=== PATIENT | female | born 1975 | race African-American/Black ===

== ENCOUNTER → 2018-05-17 12:44 | Outpatient (CLI) | payer OTHER, SELFPAY ==
--- NOTE | 2018-05-17 12:46 | DI.US.S_ITS ---
PROCEDURE: US PELVIC COMPLETE INDICATIONS: Abdominal bloating TECHNIQUE: Real-time scanning was performed of the pelvic organs, with image documentation. Additional endovaginal scanning was necessary due to incomplete visualization of the adnexal and endometrial structures by transabdominal scanning. COMPARISON: None. FINDINGS: Transabdominal scanning: Limited scanning through the kidneys shows no hydronephrosis. No pathologic free abdominal or pelvic fluid. Endovaginal scanning: Uterus: Uterus is normal in size at 8.6 x 3.8 x 3.0 cm. The endometrium measures 6.0 mm in combined thickness. Ovaries: Left ovary is not visualized. Normal right ovary measuring 2.5 x 1.8 x 2.7 cm with an associated 1.6 cm follicular cyst. IMPRESSION: No source for abdominal bloating identified. Dictated by: Hunter MEJIA Interpreted: Nadiya Merchant MD on 05/17/2018 at 14:41 Approved by: Nadiya Merchant M.D. on 05/17/2018 at 16:08
== END ==
PROVIDERS: PCP Student in an Organized Health Care Education/Training Program; Visit Provider Registered Nurse
DX: R14.0 Abdominal distension (gaseous) (principal); N83.01 Follicular cyst of right ovary
CPT/HCPCS: 76830; 76856

== ENCOUNTER → 2018-06-15 10:36 | Outpatient (CLI) | payer OTHER, SELFPAY ==
--- NOTE | 2018-06-15 10:47 | DI.CT.S_ITS ---
PROCEDURE: CT ABDOMEN PELVIS WO CON INDICATIONS: Abdominal pain, weight gain TECHNIQUE: Noncontrast 5 mm thick sections acquired from the diaphragms to the symphysis. 5 mm coronal and sagittal reformats were then performed. For radiation dose reduction, the following was used: automated exposure control, adjustment of mA and/or kV according to patient size. COMPARISON: None. FINDINGS: Image quality: Excellent. ABDOMEN: Lung bases: Lung bases are clear. Heart size is normal. Solid organs: Liver is normal in size. Gallbladder is contracted, but within normal limits.. Pancreas is normal in contours. Spleen is normal in size. No adrenal nodules. Kidneys are normal in size, without hydronephrosis or nephrolithiasis. Peritoneum and bowel: Unenhanced bowel loops demonstrate normal wall thickness and caliber. No free fluid or air. The appendix is not visualized. No free fluid or inflammatory changes are noted adjacent to the cecum. Nodes and vessels: No retroperitoneal or mesenteric adenopathy by size criteria. Aorta and inferior vena cava are normal in caliber. Miscellaneous: Small fat-containing umbilical hernia. PELVIS: Genitourinary: Bladder is slightly thickened and irregular. Miscellaneous: No inguinal hernias or adenopathy. Stranding noted in the anterior lower pelvic wall possibly related to postsurgical scarring related to prior section/surgery; please correlate with clinical history. Bones: No suspicious bony lesions. No vertebral body compression fractures. IMPRESSION: 1. No free fluid or free air. 2. No dilated loops of bowel. 3. No abnormal mass. No lymphadenopathy based on size criteria. 4. Mild, diffuse irregular thickening of the urinary bladder wall. Finding could be secondary to underdistention versus inflammatory/infectious or neoplastic process. Please correlate with urinalysis data. 5. The appendix is not definitely visualized. No secondary signs of appendicitis such as inflammatory change or free fluid are identified adjacent to the cecum in the current study. Dictated by: Marni Tovar MD, PhD on 06/15/2018 at 13:19 Approved by: Marni Tovar MD, PhD on 06/15/2018 at 13:30
== END ==
PROVIDERS: PCP Student in an Organized Health Care Education/Training Program; Visit Provider Student in an Organized Health Care Education/Training Program
DX: R10.9 Unspecified abdominal pain (principal); R63.5 Abnormal weight gain
CPT/HCPCS: 74176

== ENCOUNTER → 2018-06-22 10:52 | Outpatient (CLI) | payer OTHER, SELFPAY ==
[2018-06-22 10:57] LABS: Bacteria Urine None Seen; RBC Urine None Seen (0-5/HPF); WBC Urine None Seen (0-5/HPF)
[2018-06-22 12:16] LABS: Appearance Urine UA CLEAR; Bilirubin Urine UA NEGATIVE (NEGATIVE); Color Urine UA YELLOW; Glucose Urine UA NEGATIVE (Negative); Ketones Urine UA NEGATIVE (NEGATIVE); Leukocyte Esterase Urine UA NEGATIVE (NEGATIVE); Nitrite Urine UA NEGATIVE (Negative); Occult Blood Urine UA NEGATIVE (Negative); Protein Urine UA NEGATIVE (Negative); Urobilinogen Urine UA 0.2 E.U./dL (0.2); pH Urine UA 6.5 (4.5-8.0)
[2018-06-22 12:19] LABS: Culture Indicated Urine Cult Not Indicated; Urine Comments Microscopic Normal
== END ==
PROVIDERS: PCP Student in an Organized Health Care Education/Training Program; Visit Provider Student in an Organized Health Care Education/Training Program
DX: R10.2 Pelvic and perineal pain (principal); R93.89 Abnormal findings on diagnostic imaging of other specified body structures
CPT/HCPCS: 81001

== ENCOUNTER → 2020-06-19 16:05 | Outpatient (CLI) | payer OTHER, SELFPAY ==
--- NOTE | 2020-06-19 16:06 | DI.MG.S_ITS ---
BILATERAL DIGITAL SCREENING MAMMOGRAM 3D/2D WITH CAD: 06/19/2020 CLINICAL: Routine screening. Baseline exam. No prior exams were available for comparison. The tissue of both breasts is heterogeneously dense. This may lower the sensitivity of mammography. Current study was also evaluated with a Computer Aided Detection (CAD) system. There is a 1 cm asymmetry with an indistinct margin in the right breast anterior depth central to the nipple seen on the craniocaudal view only. No other significant masses, calcifications, or other findings are seen in either breast. IMPRESSION: INCOMPLETE: NEEDS ADDITIONAL IMAGING EVALUATION The 1 cm asymmetry in the right breast is indeterminate. Additional views with possible ultrasound are recommended. This exam was interpreted at Station ID: [id number]. NOTE: For mammograms, a report in lay terms will be sent to the patient. Approximately 15% of breast malignancies will not be visualized mammographically. In the management of a palpable breast mass, a negative mammogram must not discourage biopsy of a clinically suspicious lesion. Electronically Signed By: Gatito Steinberg acr/:06/19/2020 17:24:53 letter sent: Additional Imaging Needed ACR BI-RADS Category 0: Incomplete [id number]
== END ==
PROVIDERS: PCP Student in an Organized Health Care Education/Training Program; Referring Provider Student in an Organized Health Care Education/Training Program; Visit Provider Student in an Organized Health Care Education/Training Program
DX: Z12.31 Encounter for screening mammogram for malignant neoplasm of breast (principal)
CPT/HCPCS: 77063; 77067

== ENCOUNTER → 2020-07-01 12:09 | Outpatient (CLI) | payer OTHER, SELFPAY ==
--- NOTE | 2020-07-01 12:10 | DI.US.S_ITS ---
PROCEDURE: US PELVIC COMPLETE INDICATIONS: breast cancer screening TECHNIQUE: Real-time scanning was performed of the pelvic organs, with image documentation. Additional endovaginal scanning was necessary due to incomplete visualization of the adnexal and endometrial structures by transabdominal scanning. COMPARISON: [facility], , US PELVIC COMPLETE, 05/17/2018, 13:11. FINDINGS: Uterus: Uterus is normal in size at 2.6 x 5.0 x 9.2 cm. The endometrium measures 4.2 mm in combined thickness. Ovaries: The right ovary measures 2.4 x 1.6 x 1.5 cm and the left ovary measures 2.6 x 1.5 x 1.3 cm Other: No pathologic free abdominal or pelvic fluid. IMPRESSION: No evidence of ovarian torsion. No simple or complex cyst is found. Normal appearing uterus. Dictated by: Felix Betts M.D. on 07/01/2020 at 14:01 Approved by: Felix Betts M.D. on 07/01/2020 at 14:03
== END ==
PROVIDERS: PCP Student in an Organized Health Care Education/Training Program; Referring Provider Registered Nurse; Visit Provider Registered Nurse
DX: N92.3 Ovulation bleeding (principal)
CPT/HCPCS: 76830; 76856

== ENCOUNTER → 2020-07-03 14:57 | Outpatient (CLI) | payer OTHER, SELFPAY ==
--- NOTE | 2020-07-03 14:58 | DI.MG.S_ITS ---
UNILATERAL RIGHT DIGITAL DIAGNOSTIC MAMMOGRAM 3D/2D WITH ADDITIONAL VIEWS: 07/03/2020 CLINICAL: Additional evaluation requested from prior study. Comparison is made to exam dated: 06/19/2020 [facility]. The tissue of right breast is heterogeneously dense. This may lower the sensitivity of mammography. With focal spot compression, and additional views, the 1 cm asymmetry with an indistinct margin in the right breast anterior depth central to the nipple seen on the craniocaudal view only on screening mammography resolves. No other significant masses or calcifications are seen in the breast. IMPRESSION: INCOMPLETE: NEEDS ADDITIONAL IMAGING EVALUATION An ultrasound is recommended to confirm resolution of the asymmetry in the right breast. This was performed immediately following this exam. This exam was interpreted at Station ID: [id number]. NOTE: For mammograms, a report in lay terms will be sent to the patient. Approximately 15% of breast malignancies will not be visualized mammographically. In the management of a palpable breast mass, a negative mammogram must not discourage biopsy of a clinically suspicious lesion. Electronically Signed By: Lilo shearer/:07/03/2020 15:33:25 ACR BI-RADS Category 0: Incomplete [id number]
--- NOTE | 2020-07-03 14:58 | DI.US.S_ITS ---
LIMITED ULTRASOUND OF RIGHT BREAST AND AXILLA: 07/03/2020 CLINICAL: Patient returns today to evaluate a focal asymmetry in the right breast. Comparison is made to exams dated: 07/03/2020 mammogram and 06/19/2020 mammogram - [facility]. Ultrasound of the right breast 11-1 o'clock, 5-7 o'clock, and axilla regions was performed. No significant abnormalities were seen sonographically in the right breast. Specifically, no finding to correspond to the patient's resolved screening mammographic abnormality. IMPRESSION: PROBABLY BENIGN There is no sonographic correlate to the patient's screening mammography abnormality and no evidence of malignancy. A follow-up right mammogram in 6 months is recommended to demonstrate stability. Findings and recommendations were conveyed to the patient at time of exam. This exam was interpreted at Station ID: [id number]. Electronically Signed By: Lilo shearer/:07/03/2020 16:23:17 letter sent: Followup Recommended Ultrasound BI-RADS: 3 Probably benign
== END ==
PROVIDERS: PCP Registered Nurse; Referring Provider Student in an Organized Health Care Education/Training Program; Visit Provider Student in an Organized Health Care Education/Training Program
DX: R92.8 Other abnormal and inconclusive findings on diagnostic imaging of breast (principal)
CPT/HCPCS: 76642; 77065; G0279

== ENCOUNTER → 2021-01-28 12:41 | Outpatient (CLI) | payer OTHER, SELFPAY ==
--- NOTE | 2021-01-28 12:42 | DI.MG.S_ITS ---
UNILATERAL RIGHT DIGITAL DIAGNOSTIC MAMMOGRAM 3D/2D: 01/28/2021 CLINICAL: Short term follow up of the right breast. Comparison is made to exams dated: 07/03/2020 ultrasound, 07/03/2020 mammogram, and 06/19/2020 mammogram - [facility]. The tissue of right breast is heterogeneously dense. This may lower the sensitivity of mammography. The previously seen asymmetry in the right breast is no longer visualized with spot compression, similar to the prior diagnostic exam. No significant masses, calcifications, or other findings are seen in the breast. IMPRESSION: NEGATIVE There is no mammographic evidence of malignancy. A 1 year screening mammogram is recommended. This exam was interpreted at Station ID: [id number]. NOTE: For mammograms, a report in lay terms will be sent to the patient. Approximately 15% of breast malignancies will not be visualized mammographically. In the management of a palpable breast mass, a negative mammogram must not discourage biopsy of a clinically suspicious lesion. Electronically Signed By: Rodney gonzalez/suzette:01/28/2021 13:16:47 letter sent: Normal Exam ACR BI-RADS Category 1: Negative [id number]
== END ==
PROVIDERS: PCP Registered Nurse; Referring Provider Registered Nurse; Visit Provider Registered Nurse
DX: R92.8 Other abnormal and inconclusive findings on diagnostic imaging of breast (principal)
CPT/HCPCS: 77065; G0279

== ENCOUNTER 2022-07-06 09:18 | Emergency (ER) | payer OTHER, SELFPAY ==
[2022-07-06 09:34] VITALS: BP 117/74; PULSE 95; RESP 14; TEMP 38.6; O2SAT 98; BMI 24.5
--- NOTE | 2022-07-06 09:40 | DI.RAD.S_ITS ---
PROCEDURE: XR CHEST 2V INDICATIONS: cough x 21 days, now fever TECHNIQUE: 2 views of the chest were acquired. COMPARISON: None. FINDINGS: Surgical changes and devices: None. Lungs and pleura: Lungs are clear. No pleural effusions or pneumothorax. Mediastinum: Mediastinal contours are normal. Borderline cardiomegaly. Bones and chest wall: No suspicious bony abnormalities. Soft tissues appear unremarkable. IMPRESSION: Borderline cardiomegaly. No evidence acute pulmonary process. Dictated by: Ken Mosquera M.D. on 07/06/2022 at 9:52 Approved by: Ken Mosquera M.D. on 07/06/2022 at 9:53
[2022-07-06 09:44] VITALS: TEMP 38.6
[2022-07-06] MEDS: ACETAMINOPHEN 325 MG TABLET 975 MG PO (09:44)
[2022-07-06 10:23] LABS: Influenza A - CEPHEID Flu A NEGATIVE (NEGATIVE); Influenza B - CEPHEID Flu B NEGATIVE (NEGATIVE); Respiratory Syncytial Virus Negative (Negative)
[2022-07-06 10:27] LABS: COVID-19 CEPHEID 4-PLEX PCR Negative (Negative)
[2022-07-06 11:33] VITALS: TEMP 37.4
--- NOTE | 2022-07-06 12:31 | ED_ITS ---
HPI - Fever <Rod Leon PA-C - Last Filed: 07/06/22 12:38> General Chief Complaint: Fever Stated Complaint: cough T-21/fever/chest pain Time Seen by Provider: 07/06/22 11:56 Source: patient Mode of arrival: Ambulatory History of Present Illness HPI Narrative: 47-year-old female presents to the ED with 2 days of fever, cough. Patient states she has been intermittently coughing for the last 3 weeks, however star damon running a fever over the last couple of days. Patient denies rhinorrhea, sore throat, chest pain, shortness of breath, nausea, vomiting, lightheadedness, dizziness, syncope. Patient is tolerating p.o. well. Related Data Previous Rx's Medication Instructions Recorded benzonatate 200 mg capsule 200 mg PO TID PRN cough 10 days 07/06/22 #30 caps Allergies Allergy/AdvReac Type Severity Reaction Status Date / Time amoxicillin [AMOXICILLIN] Allergy Mild rash Verified 07/06/22 09:38 Review of Systems <Rod Leon PA-C - Last Filed: 07/06/22 12:38> Review of Systems ROS Unobtainable: All systems reviewed & are unremarkable except as noted in HPI and below Constitutional Constitutional: Reports chills, Denies fatigue, Reports fever(s), Denies frequent falls, Denies lethargy and Denies weakness Eyes Eyes: Denies change in vision, Denies eye discharge, Denies irritation and Denies loss of vision ENT Ears, Nose, Mouth, and Throat: Denies change in voice, Denies dizziness, Denies neck pain, Denies sore throat and Denies throat swelling Cardiovascular Cardiovascular: Denies chest pain, Denies irregular heart rhythm, Denies lightheadedness, Denies palpitations, Denies dyspnea, Denies dyspnea on exertion and Denies orthopnea Respiratory Respiratory: Reports cough, Denies dyspnea, Denies dyspnea on exertion and Denies wheezing Gastrointestinal Gastrointestinal: Denies abdominal pain, Denies change in bowel habits, Denies diarrhea, Denies nausea and Denies vomiting Genitourinary Genitourinary: Denies hematuria, Denies flank pain, Denies urinary incontinence and Denies urinary urgency Musculoskeletal Musculoskeletal: Denies back pain, Denies muscle weakness, Denies neck pain, Denies numbness and Denies tingling Integumentary/Breasts Skin/Breast: Denies pruritus, Denies erythema, Denies rash and Denies wounds Neurologic Neurologic: Denies behavioral changes, Denies confusion, Denies dizziness, Denies frequent falls, Denies loss of vision, Denies numbness, Denies tingling and Denies weakness Psychiatric Psychiatric: Denies anxiety, Denies behavioral changes, Denies confusion, Denies depression, Denies homicidal ideation and Denies suicidal ideation Endocrine Endocrine: Denies fatigue, Denies flushing and Denies palpitations Hematologic/Lymphatic Hematologic/Lymphatic: Denies easy bruising Allergic/Immunologic Allergic/Immunologic: Denies urticaria, Denies throat swelling and Denies wheezing Patient History <Rod Leon PA-C - Last Filed: 07/06/22 12:38> Medical History Abnormal Pap smear of cervix History of stillbirth History of use of contraceptive intrauterine device (IUD) History of vaginal delivery Surgical History History of cervical cerclage History of unilateral oophorectomy Family History Father Suicide Mother Hypertension Diabetes mellitus Hyperlipidemia CVA (cerebral vascular accident) Social History Smoking Status: Never smoker alcohol intake: current (sometimes) substance use type: does not use Smoking Status: Never smoker alcohol intake frequency: holidays/special occasions only Substance Use Type: does not use Exam <Rod Leon PA-C - Last Filed: 07/06/22 12:38> Narrative Exam Narrative: Const General:?cooperative, healthy appearing and comfortable [facility] Head:?normal to inspection Ears:?hearing grossly normal bilaterally Nose:?external nose normal Face and sinus:?normal facial exam and sinuses nontender Mouth:?oral mucosae normal Throat:?posterior oropharynx normal Eyes General:?appearance normal, both eyes and all related structures Neck Neck:?normal visual inspection and no lymphadenopathy noted Resp Effort & Inspection:?normal respiratory effort Auscultation:?clear to auscultation bilaterally Cardio Rate:?regular rate Rhythm:?regular rhythm Neuro General:?patient alert, patient awake and patient oriented x3 Initial Vital Signs Initial Vital Signs: Vital Signs Temperature 101.5 F H 07/06/22 09:34 Pulse Rate 95 H 07/06/22 09:34 Respiratory Rate 14 07/06/22 09:34 Blood Pressure 117/74 07/06/22 09:34 Pulse Oximetry 98 07/06/22 09:34 Oxygen Delivery Method 07/06/22 09:34 <Rufino Nelson DO - Last Filed: 07/06/22 13:08> Initial Vital Signs Initial Vital Signs: Vital Signs Temperature 101.5 F H 07/06/22 09:34 Pulse Rate 95 H 07/06/22 09:34 Respiratory Rate 14 07/06/22 09:34 Blood Pressure 117/74 07/06/22 09:34 Pulse Oximetry 98 07/06/22 09:34 Oxygen Delivery Method 07/06/22 09:34 Course <Rod Leno PA-C - Last Filed: 07/06/22 12:38> Orders Ordered: ED Orders 07/06/22 09:40 XR chest 2V Stat 07/06/22 09:41 Covid-19 + FLU A/B + RSV - PCR Stat Discontinued Medications Acetaminophen (Acetaminophen 325 Mg Tablet) 975 mg PO NOW ONE Stop: 07/06/22 09:40 Last Admin: 07/06/22 09:44 Dose: 975 mg Documented By: ANA Vital Signs Vital signs: Vital Signs - 8 hr 07/06/22 09:34 07/06/22 09:44 07/06/22 11:33 Temperature 101.5 F H 101.5 F H 99.3 F Pulse Rate 95 H Respiratory Rate 14 Blood Pressure 117/74 Pulse Oximetry 98 Oxygen Delivery Method Room Air 07/06/22 11:33 07/06/22 12:37 Temperature 99.3 F Pulse Rate 70 Respiratory Rate 18 Blood Pressure 122/70 Pulse Oximetry 99 Oxygen Delivery Method Room Air <DO Petey Tomas Last Filed: 07/06/22 13:08> Orders Ordered: ED Orders 07/06/22 09:40 XR chest 2V Stat 07/06/22 09:41 Covid-19 + FLU A/B + RSV - PCR Stat Discontinued Medications Acetaminophen (Acetaminophen 325 Mg Tablet) 975 mg PO NOW ONE Stop: 07/06/22 09:40 Last Admin: 07/06/22 09:44 Dose: 975 mg Documented By: ANA Vital Signs Vital signs: Vital Signs - 8 hr 07/06/22 09:34 07/06/22 09:44 07/06/22 11:33 Temperature 101.5 F H 101.5 F H 99.3 F Pulse Rate 95 H Respiratory Rate 14 Blood Pressure 117/74 Pulse Oximetry 98 Oxygen Delivery Method Room Air 07/06/22 11:33 07/06/22 12:37 Temperature 99.3 F Pulse Rate 70 Respiratory Rate 18 Blood Pressure 122/70 Pulse Oximetry 99 Oxygen Delivery Method Room Air MDM - Fever <Rod Leon PA-C - Last Filed: 07/06/22 12:38> Lab Data Labs: Lab Results 07/06/22 Range/Units 09:41 SARS-CoV-2 (PCR) Negative (Negative) Influenza A (RT-PCR) Flu a negative (NEGATIVE) Influenza B (RT-PCR) Flu b negative (NEGATIVE) RSV (PCR) Negative (Negative) MDM Narrative Medical decision making narrative: 47-year-old female presents to the ED with 2 days of fever, cough. Concern for viral upper respiratory infection versus pneumonia versus other. Obtained respiratory panel which was negative for COVID, influenza, RSV. Obtained x-ray with no acute findings, negative for pneumonia. Patient's symptoms likely due to a viral upper respiratory infection. Patient was febrile to 101.5 F on presentation to the ED, was given Tylenol with successfully brought her te mperature down to 99.3 F. discussed findings with patient, recommend supportive measures with Tylenol, ibuprofen, Tessalon Perles, good hydration. Patient agrees to follow-up with her PCP, agrees to return to the ED if she experiences chest pain, trouble breathing. Medical records reviewed: Yes <Rufino Nelson DO - Last Filed: 07/06/22 13:08> Lab Data Labs: Lab Results 07/06/22 Range/Units 09:41 SARS-CoV-2 (PCR) Negative (Negative) Influenza A (RT-PCR) Flu a negative (NEGATIVE) Influenza B (RT-PCR) Flu b negative (NEGATIVE) RSV (PCR) Negative (Negative) Discharge Plan Departure Patient Disposition: Home Clinical Impression: Acute upper respiratory infection Instructions: DI for Viral Upper Respiratory Infection -- Adult Activity Restrictions/Additional Instructions: You were evaluated in the ED today for a fever and a cough. You were negative for COVID-19, influenza, RSV. Your chest x-ray does not show a pneumonia. Your symptoms are likely due to a viral upper respiratory infection. You may treat the fever and body aches with Tylenol, ibuprofen. Please continue good hydration. You are being prescribed Tessalon Perles for your cough. Please follow-up with your PCP in a week. Return to the ED if you have any chest pain or trouble breathing. Prescriptions: New benzonatate 200 mg capsule 200 mg PO TID PRN (Reason: cough) 10 Days Qty: 30 0RF Referrals: Leodan Guo MD [Primary Care Provider] - Stand Alone Forms: Patient Portal/API <Rufino Nelson, - Last Filed: 07/06/22 13:08> Cosign ED Attending Cosignature Attestation: Dr Nelson Co-Sign Statement: I was available for consultation during this patient's emergency department visit. This chart is signed by myself for administrative purposes only. I did not have direct contact with this patient during this visit. They were seen independently by the APC.
[2022-07-06 12:37] VITALS: BP 122/70; PULSE 70; RESP 18; O2SAT 99
== END 2022-07-06 12:41 | disposition home or self-care (01) ==
PROVIDERS: Emergency Medicine; Emergency Provider Student in an Organized Health Care Education/Training Program; PCP Family Medicine
DX: J06.9 Acute upper respiratory infection, unspecified (principal); R05.9 Cough, unspecified; Z20.822 Contact with and (suspected) exposure to COVID-19
CPT/HCPCS: 0241U; 71046; 99283

== ENCOUNTER 2022-07-11 19:34 | Emergency (ER) | payer OTHER, SELFPAY ==
--- NOTE | 2022-07-11 19:41 | ED.GENADULT ---
HPI - General Adult General Chief complaint: Upper Respiratory Symptoms Stated complaint: weak, cough, chills Time Seen by Provider: 07/11/22 19:37 History of Present Illness HPI narrative: 47-year-old female nonsmoker presents with various upper respiratory symptoms including nasal congestion, runny nose, sore throat, dry hacking cough and body aches. She feels generally fatigued. She does not have any significant shortness of breath and denies nausea, vomiting or diarrhea. She was here earlier in the week and had evaluation including chest x-ray which was clear and quad respiratory panel negative. She was sent home with diagnosis of viral upper respiratory infection, given a prescription for Tessalon Perles and returns because she isn't feeling any better. Admittedly she does not feel worse but is concerned that something else may be going on. She denies any recent travel, injury or history of blood clot. She denies any history of cancer or lower extremity pain Related Data Previous Rx's Medication Instructions Recorded benzonatate 200 mg capsule 200 mg PO TID PRN cough 10 days 07/06/22 #30 caps doxycycline hyclate 100 mg tablet 100 mg PO BID #20 tabs 07/11/22 Allergies Allergy/AdvReac Type Severity Reaction Status Date / Time amoxicillin [AMOXICILLIN] Allergy Mild rash Verified 07/06/22 09:38 Review of Systems Review of Systems Narrative: GENERAL: See HPI HEENT: See HPI RESPIRATORY: See HPI CARDIOVASCULAR: Denies chest pain, palpitations, orthopnea, edema, GASTROINTESTINAL: Denies nausea, vomiting, abdominal pain, diarrhea, constipation, melena. : Denies dysuria, frequency, incontinence, hematuria, urinary retention. MUSCULOSKELETAL: denies weakness, joint pain, or bony pain SKIN: Denies rash, skin lesions, or other NEUROLOGIC: Denies weakness, headache, numbness, change in speech, confusion, seizures, incoordination. PSYCHIATRIC: No concerning psychosocial issues. 12 point review of systems is negative except for those stated above Patient History Medical History Abnormal Pap smear of cervix History of stillbirth History of use of contraceptive intrauterine device (IUD) History of vaginal delivery Surgical History History of cervical cerclage History of unilateral oophorectomy Family History Father Suicide Mother Hypertension Diabetes mellitus Hyperlipidemia CVA (cerebral vascular accident) Social History Smoking Status: Never smoker alcohol intake: current (sometimes) substance use type: does not use Smoking Status: Never smoker alcohol intake frequency: holidays/special occasions only Substance Use Type: does not use Exam Narrative Exam Narrative: GENERAL: 47[] year old patient appears stated age. Well-developed patient, in mild distress. GCS 15 HEAD: Atraumatic. Normocephalic. EYES: Pupils equal round and reactive. Extraocular motions intact. No scleral icterus. No injection or drainage. ENT: Moist mucous membranes. Clear nasal drainage bilaterally Nose without bleeding, purulent drainage. Throat without erythema, tonsillar hypertrophy or exudate. Airway patent. NECK: Trachea midline. Non tender CARDIOVASCULAR: Regular rate and rhythm without murmurs, gallops, or rubs. RESPIRATORY: Lungs clear, no use of accessory muscles, tachypnea or hypoxemia. It is noted that deep breath does occasionally illicit a dry cough. No obvious wheezes, rales or rhonchi GASTROINTESTINAL: Abdomen soft, non-tender, nondistended. EXTREMITIES: No edema or joint tenderness. BACK: Nontender without deformity or crepitance. No flank tenderness. NEURO: AOx3. SKIN: No rash or erythema of visible areas Initial Vital Signs Initial Vital Signs: Vital Signs Temperature 98.6 F 07/11/22 19:43 Pulse Rate 87 07/11/22 19:43 Respiratory Rate 18 07/11/22 19:43 Blood Pressure 179/104 H 07/11/22 19:43 Pulse Oximetry 98 07/11/22 19:43 Oxygen Delivery Method Room Air 07/11/22 19:43 Course Orders Ordered: ED Orders 07/11/22 19:47 Respiratory Panel (Film Array) Stat 07/11/22 19:55 CBC Auto Diff [Complete Blood Count AUTO DIFF] Stat D Dimer Stat NT-proBNP (BNP-Adult 18+) Stat Procalcitonin Stat 07/11/22 20:44 CT angio chest PE protocol Stat Discontinued Medications Doxycycline Hyclate (Doxycycline Hyclate 100 Mg Tablet) 100 mg PO NOW ONE Stop: 07/11/22 21:38 Last Admin: 07/11/22 21:44 Dose: 100 mg Documented By: NR Vital Signs Vital signs: Vital Signs - 8 hr 07/11/22 19:43 07/11/22 21:31 07/11/22 21:31 Temperature 98.6 F Pulse Rate 87 75 Respiratory Rate 18 Blood Pressure 179/104 H 131/81 Pulse Oximetry 98 99 Oxygen Delivery Method Room Air Room Air Medical Decision Making Lab Data 07/11/22 19:55 Labs: Lab Results 07/11/22 07/11/22 07/11/22 Range/Units 19:47 19:55 19:55 WBC 5.6 (4.5-11.0) X10^3/uL RBC 4.29 (4.0-5.2) X10^6/uL Hgb 13.0 (12.0-16.0) g/dL Hct 38.0 (36-46) % MCV 88.5 (80-100) fL MCH 30.3 (26-34) PG MCHC 34.2 (30-36) % RDW 13.1 (11.6-14.8) % Plt Count 207 (150-400) X10^3/uL Neut % (Auto) 53.0 (50-75) % Lymph % (Auto) 33.5 (25-40) % [place] % (Auto) 9.6 (3-14) % Eos % (Auto) 3.5 (2-4) % Baso % (Auto) 0.4 (0-2) % Neut # (Auto) 3000 (0082-5540) /uL Lymph # (Auto) 1900 (9335-4344) /uL [place] # (Auto) 500 (0-900) /uL Eos # (Auto) 200 (0-450) /uL Baso # (Auto) 0 (0-100) /uL D-Dimer 794 H (<500) ng/ml NT-Pro-B Natriuret Pep (<125) pg/mL Procalcitonin (<0.5) ng/mL Chlamy pneumoniae PCR Not detected (Not Detect) Adenovirus (PCR) Not detected (Not Detect) B. pertussis DNA (PCR) Not detected (Not Detecte) B.parapertussis DNA PCR Not detected (Not Detecte) Coronavirus OC43 (PCR) Not detected (Not Detect) Coronavirus HKU1 (PCR) Not detected (Not Detect) Coronavirus 229E (PCR) Not detected (Not Detect) SARS-CoV-2 (PCR) Not detected (Not Detecte) Coronavirus NL63 (PCR) Not detected (Not Detect) Human Metapneumovir PCR Detected H (Not Detect) Influenza Type A (PCR) Not detected (Not Detect) Influenza Type B (PCR) Not detected (Not Detect) M. pneumoniae (PCR) Not detected (Not Detect) Parainfluenza 1 (PCR) Not detected (Not Detect) Parainfluenza 2 (PCR) Not detected (Not Detect) Parainfluenza 3 (PCR) Not detected (Not Detect) Parainfluenza 4 (PCR) Not detected (Not Detect) RSV (PCR) Not detected (Not Detect) Entero/Rhino (PCR) Not detected (Not Detect) 07/11/22 Range/Units 19:55 WBC (4.5-11.0) X10^3/uL RBC (4.0-5.2) X10^6/uL Hgb (12.0-16.0) g/dL Hct (36-46) % MCV (80-100) fL MCH (26-34) PG MCHC (30-36) % RDW (11.6-14.8) % Plt Count (150-400) X10^3/uL Neut % (Auto) (50-75) % Lymph % (Auto) (25-40) % [place] % (Auto) (3-14) % Eos % (Auto) (2-4) % Baso % (Auto) (0-2) % Neut # (Auto) (3830-2878) /uL Lymph # (Auto) (0365-9889) /uL [place] # (Auto) (0-900) /uL Eos # (Auto) (0-450) /uL Baso # (Auto) (0-100) /uL D-Dimer (<500) ng/ml NT-Pro-B Natriuret Pep 94 (<125) pg/mL Procalcitonin 0.06 (<0.5) ng/mL Chlamy pneumoniae PCR (Not Detect) Adenovirus (PCR) (Not Detect) B. pertussis DNA (PCR) (Not Detecte) B.parapertussis DNA PCR (Not Detecte) Coronavirus OC43 (PCR) (Not Detect) Coronavirus HKU1 (PCR) (Not Detect) Coronavirus 229E (PCR) (Not Detect) SARS-CoV-2 (PCR) (Not Detecte) Coronavirus NL63 (PCR) (Not Detect) Human Metapneumovir PCR (Not Detect) Influenza Type A (PCR) (Not Detect) Influenza Type B (PCR) (Not Detect) M. pneumoniae (PCR) (Not Detect) Parainfluenza 1 (PCR) (Not Detect) Parainfluenza 2 (PCR) (Not Detect) Parainfluenza 3 (PCR) (Not Detect) Parainfluenza 4 (PCR) (Not Detect) RSV (PCR) (Not Detect) Entero/Rhino (PCR) (Not Detect) Urine Dip Bedside Urine Glucose Negative Bedside Urine Bilirubin - Negative Bedside Urine Ketone - Negative Urine Specific [place] 1.015 Bedside Urine Occult Blood - Negative Bedside Urine pH 7.0 Bedside Urine Protein - Negative Bedside Urine Urobilinogen - Negative Bedside Urine Nitrite - Negative Bedside Urine Leukocytes - Negative Esterase Point of care testing: Urine Dip Bedside Urine Glucose Negative Bedside Urine Bilirubin - Negative Bedside Urine Ketone - Negative Urine Specific [place] 1.015 Bedside Urine Occult Blood - Negative Bedside Urine pH 7.0 Bedside Urine Protein - Negative Bedside Urine Urobilinogen - Negative Bedside Urine Nitrite - Negative Bedside Urine Leukocytes - Negative Esterase MDM Narrative Additional Information: CC: 47-year-old female with upper respiratory symptoms and dry cough Complicating co-morbidities: Repeat visit Data collected from: Patient Medical records reviewed: Prior notes reviewed in our EMR Differential considered, but not limited to: Flu, COVID, RSV, other viral upper respiratory infection, pulmonary embolism, pneumonia, CHF versus other Exam documented above, pertinent findings include: Well-hydrated, no significant work of breathing or hypoxemia, no tachycardia or tachypnea Lab Test results independently reviewed as above. Pertinent findings: Respiratory panel significant for human metapneumovirus. Lab work demonstrates no significant leukocytosis or left shift. D-dimer is above the age corrected cutoff and given her otherwise unexplained dry cough and shortness of breath advanced imaging in the form of a CT angiogram is performed Independently reviewed EKG as above Imaging studies independently reviewed: CTA demonstrates possible atypical pneumonia, no pulmonary embolism Discussion: Patient with multiple upper respiratory symptoms including nasal congestion, runny nose, sore throat and dry cough as well as fatigue returns with persistent symptoms after reassuring evaluation earlier in the week. She has reassuring vital signs and is in no obvious respiratory distress. Given lack of improvement we discussed the utility of performing a slightly more involved workup, a full respiratory panel and labs were ordered. Her symptoms surely could be completely explained by human metapneumovirus but given elevated D-dimer a CT angiogram was performed which showed no pulmonary embolism, but does suggest the possibility of an atypical pneumonia. As we are about 7 days into symptoms without improvement and these findings on imaging we did discuss the utility of antibiotics to cover atypical pneumonia and sure the opinion that it is a reasonable treatment option. Patient is given 1st dose here in the emergency department with remainder prescription sent to her pharmacy of choice. Importance of close follow-up related to patient as well as the details of return precautions. She understands and agrees with diagnosis and plan has had questions answered to her apparent satisfaction Disposition: see below, along with detailed discharge instructions that have been reviewed with patient as well as indications for ED re-evaluation and additional outpatient follow up Discharge Plan Departure Patient Disposition: Home Clinical Impression: Human metapneumovirus pneumonia, Atypical pneumonia Instructions: DI for Atypical Pneumonia Activity Restrictions/Additional Instructions: *You have been diagnosed with [atypical pneumonia. As we discussed your history and physical exam are reassuring, the respiratory swab noted a virus called human metapneumovirus, the chest x-ray suggests the possibility of an atypical pneumonia, hence our decision to initiate antibiotics] *What to do: *Please continue to take your regular medications as directed. [x ] New medication prescriptions sent to your pharmacy: [ [facility]] [ ] New medication written as a paper prescription [ ] No new medications given *Please follow up with your primary care provider in 2-3 days, call for an appointment. Let them know you were seen in the Emergency Department and that we ask that you be seen in follow up. We will electronically transmit a record of today's note if your PCP is in our system *If you do not have a primary care provider please contact the [facility] Resource line at [phone]. They will ask some questions about your medical history and help get you set up with a doctor in the community. *Return to Emergency Department if you should have any new, worsening or concerning symptoms, such as [fever greater than 101 F, shaking chills, worsening pain, persistent vomiting or other bothersome symptoms] Prescriptions: New doxycycline hyclate 100 mg tablet 100 mg PO BID Qty: 20 0RF No Action benzonatate 200 mg capsule 200 mg PO TID PRN (Reason: cough) 10 Days Qty: 30 0RF Referrals: Dada Ferrera MD [Primary Care Provider] - Stand Alone Forms: Patient Portal/API, Work Release Note
[2022-07-11 19:43] VITALS: BP 179/104; PULSE 87; RESP 18; TEMP 37; O2SAT 98
[2022-07-11 20:16] LABS: Add Manual Diff / Slide Review NO; Basophils Absolute Auto 0 /uL (0-100); Basophils Percent Auto 0.4 % (0-2); Eosinophils Absolute Auto 200 /uL (0-450); Eosinophils Percent Auto 3.5 % (2-4); Lymphocytes Absolute Auto 1900 /uL (1100-4500); Lymphocytes Percent Auto 33.5 % (25-40); Mean Corpuscular HGB Conc 34.2 % (30-36); Mean Corpuscular Hemoglobin 30.3 PG (26-34); Mean Corpuscular Volume 88.5 fL (80-100); Monocytes Absolute Auto 500 /uL (0-900); Monocytes Percent Auto 9.6 % (3-14); Neutrophils Absolute Auto 3000 /uL (1500-7000); Platelet Count 207 X10^3/uL (150-400); Red Blood Cell Count 4.29 X10^6/uL (4.0-5.2); Red Cell Distribution Width 13.1 % (11.6-14.8); White Blood Cell Count 5.6 X10^3/uL (4.5-11.0)
[2022-07-11 20:27] LABS: D Dimer 794 ng/ml (<500)
[2022-07-11 20:39] LABS: NT-proBNP (BNP-Adult 18+) 94 pg/mL (<125)
--- NOTE | 2022-07-11 20:44 | DI.CT.S_ITS ---
PROCEDURE: CT ANGIO CHEST PE PROTOCOL INDICATIONS: dry cough, fatigue, critical dimer, SOB TECHNIQUE: After the administration of intravenous contrast, 2 mm thick sections acquired from the pulmonary apices to the posterior costophrenic angles. 3-dimensional maximum intensity projection (MIP) coronal and sagittal reformats were then acquired through the thorax. For radiation dose reduction, the following was used: automated exposure control, adjustment of mA and/or kV according to patient size. COMPARISON: None. FINDINGS: Image quality: Excellent. Pulmonary arteries: Pulmonary arteries are normal in size, and demonstrate no intraluminal filling defects to suggest central pulmonary embolism. Lungs and pleura: Lungs are clear on the right but demonstrate a definite patchy left-sided alveolar infiltration pattern, involving the left upper and lower lungs, mild to moderate in overall severity. No pleural effusions or pneumothorax. Central and peripheral airways are patent. Mediastinum: Heart size is normal, without pericardial effusion. No mediastinal or hilar adenopathy. Thoracic aorta is normal in caliber and enhancement. Esophagus is normal in caliber, without hiatal hernia. Bones and chest wall: No suspicious bony lesions. Ribs and thoracic spine appear intact throughout. Thyroid gland appears normal where well seen. No axillary or supraclavicular adenopathy. Abdomen: Visualized upper abdominal solid organs appear normal in the early arterial phase of enhancement. IMPRESSION: Left-sided patchy alveolitis pattern, potentially a manifestation of atypical/viral pneumonia. No pulmonary embolus is present. Dictated by: Felix Betts M.D. on 07/11/2022 at 21:20 Approved by: Felix Betts M.D. on 07/11/2022 at 21:23
[2022-07-11 20:46] LABS: Procalcitonin 0.06 ng/mL (<0.5)
[2022-07-11 20:48] LABS: Adenovirus Not Detected (Not Detect); B. parapertussis Not Detected (Not Detecte); Bordetella pertussis Not Detected (Not Detecte); Chlamydophila pneumoniae Not Detected (Not Detect); Coronavirus 229E Not Detected (Not Detect); Coronavirus HKU1 Not Detected (Not Detect); Coronavirus NL 63 Not Detected (Not Detect); Coronavirus OC43 Not Detected (Not Detect); Human Metapneumovirus Detected (Not Detect); Human Rhinovirus/Enterovirus Not Detected (Not Detect); Influenza A Not Detected (Not Detect); Influenza B Not Detected (Not Detect); Mycoplasma pneumoniae Not Detected (Not Detect); Parainfluenza Virus 1 Not Detected (Not Detect); Parainfluenza Virus 2 Not Detected (Not Detect); Parainfluenza Virus 3 Not Detected (Not Detect); Parainfluenza Virus 4 Not Detected (Not Detect); Respiratory Syncytial Virus Not Detected (Not Detect); SARS- CoV-2 Not Detected (Not Detecte)
[2022-07-11 21:31] VITALS: BP 131/81; PULSE 75; O2SAT 99
[2022-07-11] MEDS: DOXYCYCLINE HYCLATE 100 MG TABLET PO (21:44)
== END 2022-07-11 21:54 | disposition home or self-care (01) ==
PROVIDERS: Emergency Provider Emergency Medicine; PCP Student in an Organized Health Care Education/Training Program
DX: J12.3 Human metapneumovirus pneumonia (principal)
CPT/HCPCS: 71275; 81003; 83880; 84145; 85025; 85379; 87633; 99283; 99284; Q9967

== ENCOUNTER → 2022-07-31 15:54 | Outpatient (CLI) | payer OTHER, SELFPAY ==
--- NOTE | 2022-07-31 15:55 | DI.MG.S_ITS ---
BILATERAL DIGITAL SCREENING MAMMOGRAM 3D/2D WITH CAD: 07/31/2022 CLINICAL: Routine screening. Comparison is made to exams dated: 01/28/2021 mammogram, 07/03/2020 mammogram, and 06/19/2020 mammogram - [facility]. There are scattered areas of fibroglandular density in both breasts (category b / 25%-50% glandular tissue). Current study was also evaluated with a Computer Aided Detection (CAD) system. No significant masses, calcifications, or other findings are seen in either breast. There has been no significant interval change. IMPRESSION: NEGATIVE There is no mammographic evidence of malignancy. A 1 year screening mammogram is recommended. Based on the Tyrer Cuzick model (a risk assessment model) the patient's lifetime risk is 9.2% and her 10 year risk is 1.8%. According to the ACR, ACS, and NCCN guidelines, an annual breast MRI exam along with mammogram is recommended if the patient's lifetime risk is 20% or greater. This exam was interpreted at Station ID: [id number]. NOTE: For mammograms, a report in lay terms will be sent to the patient. Approximately 15% of breast malignancies will not be visualized mammographically. In the management of a palpable breast mass, a negative mammogram must not discourage biopsy of a clinically suspicious lesion. Electronically Signed By: Lilo shearer/suzette:07/31/2022 18:01:36 letter sent: Normal Exam ACR BI-RADS Category 1: Negative 3341F
[2022-08-03 10:07] LABS: Fecal Immunochemical Test Negative (Negative)
== END ==
PROVIDERS: PCP Family Medicine; Referring Provider Family Medicine; Visit Provider Family Medicine
DX: Z12.31 Encounter for screening mammogram for malignant neoplasm of breast (principal); Z12.11 Encounter for screening for malignant neoplasm of colon
CPT/HCPCS: 77063; 77067; 82274

== ENCOUNTER → 2022-11-18 08:31 | Outpatient (CLI) | payer OTHER, SELFPAY ==
[2022-11-18 09:32] LABS: Alanine Aminotransferase 31 IU/L (<35); Albumin 4.4 g/dL (3.5-5.0); Albumin Globulin Ratio 1.3 (1.0-2.8); Alkaline Phosphatase 99 U/L (38-126); Aspartate Aminotransferase 41 IU/L (14-36); BUN Creatinine Ratio 16.4 (6-22); Bilirubin Total 0.7 mg/dL (0.2-1.3); Blood Urea Nitrogen 12 mg/dL (7-17); Calcium 9.4 mg/dL (8.4-10.2); Carbon Dioxide 32 mmol/L (22-32); Chloride 100 mmol/L (98-107); Cholesterol 226 mg/dL (140-199); Estimated Glomerular Filt Rate > 60 mL/min (>60); Globulin 3.3 g/dL (1.7-4.1); Glucose 104 mg/dL (70-100); HDL Cholesterol 93 mg/dL (40-60); HEMOLYSIS < 15 (0-50); LDL Cholesterol Calculated 117 mg/dL (<100); Potassium 3.8 mmol/L (3.4-5.1); Sodium 137 mmol/L (137-145); Total Protein 7.7 g/dL (6.3-8.2); Triglycerides 82 mg/dL (35-150)
[2022-11-19 03:18] LABS: Labcorp Hemoglobin (Hb) A1c 5.8 % (4.8-5.6)
[2022-11-19 16:28] LABS: HIV 1 & 2 Ab/Ag 4th Gen Combo NEGATIVE (NEGATIVE); Hep C Virus Ab w/Reflex Quant NEGATIVE s/c (NEGATIVE); Hepatitis B Surface Antigen NEGATIVE s/c (NEGATIVE)
== END ==
PROVIDERS: PCP Family Medicine; Referring Provider Family Medicine; Visit Provider Family Medicine
DX: Z00.00 Encounter for general adult medical examination without abnormal findings (principal)
CPT/HCPCS: 36415; 80053; 80061; 83036; 86803; 87340; 87389

== ENCOUNTER → 2023-09-04 12:57 | Outpatient (CLI) | payer OTHER, SELFPAY ==
--- NOTE | 2023-09-04 12:59 | DI.MG.S_ITS ---
BILATERAL DIGITAL SCREENING MAMMOGRAM 3D/2D WITH CAD: 09/04/2023 CLINICAL: Routine screening. Comparison is made to exams dated: 07/31/2022 mammogram, 06/19/2020 mammogram, 01/28/2021 mammogram, and 07/03/2020 mammogram - [facility]. There are scattered areas of fibroglandular density in both breasts (category b / 25%-50% glandular tissue). Current study was also evaluated with a Computer Aided Detection (CAD) system. No significant masses, calcifications, or other findings are seen in either breast. There has been no significant interval change. IMPRESSION: NEGATIVE There is no mammographic evidence of malignancy. A 1 year screening mammogram is recommended. Based on the Tyrer Cuzick model (a risk assessment model) the patient's lifetime risk is 9.2% and her 10 year risk is 1.8%. According to the ACR, ACS, and NCCN guidelines, an annual breast MRI exam along with mammogram is recommended if the patient's lifetime risk is 20% or greater. This exam was interpreted at Station ID: [id number]. NOTE: For mammograms, a report in lay terms will be sent to the patient. Approximately 15% of breast malignancies will not be visualized mammographically. In the management of a palpable breast mass, a negative mammogram must not discourage biopsy of a clinically suspicious lesion. Electronically Signed By: Med phillips/suzette:09/06/2023 08:03:01 letter sent: Normal Exam ACR BI-RADS Category 1: Negative 3341F
== END ==
LOC: MAMMO 12:58
PROVIDERS: PCP Family Medicine; Referring Provider Family Medicine; Visit Provider Family Medicine
DX: Z12.31 Encounter for screening mammogram for malignant neoplasm of breast (principal); R92.323 Mammographic fibroglandular density, bilateral breasts
CPT/HCPCS: 77063; 77067

== ENCOUNTER → 2023-12-21 10:38 | Outpatient (CLI) | payer OTHER, SELFPAY ==
[2023-12-21 14:49] LABS: Hemoglobin A1C% w Est Avg Glu 5.2 % (4.0-6.0)
== END ==
PROVIDERS: PCP Family Medicine; Referring Provider Family Medicine; Visit Provider Family Medicine
DX: R73.01 Impaired fasting glucose (principal)
CPT/HCPCS: 36415; 83036

== ENCOUNTER → 2024-11-07 16:05 | Outpatient (CLI) | payer OTHER, SELFPAY ==
--- NOTE | 2024-11-07 16:06 | DI.MG.S_ITS ---
MM screening mammo BI: 11/07/2024. BI-RADS: 1 CLINICAL: 49-year old female for bilateral screening mammogram. Tyrer-Cuzick lifetime risk of 6.5%. No personal or first-degree family history of breast cancer. PRIOR EXAMS 09/04/2023, 07/31/2022, 01/28/2021, 07/03/2020, 06/19/2020. MAMMOGRAPHY TECHNIQUE: 2D and 3D (tomosynthesis) digital mammographic views obtained, with additional images as needed for full coverage. Current study was also evaluated with a Computer Aided Detection (CAD) system. DENSITY B. There are scattered areas of fibroglandular density. MAMMOGRAPHY FINDINGS Bilateral: No suspicious mass, asymmetry, microcalcification, or other abnormality seen. IMPRESSION: * No evidence of malignancy. RECOMMENDATIONS Bilateral * Annual screening mammography. OVERALL ASSESSMENT CATEGORY BI-RADS-1: Negative. The [employer] recommends annual screening mammography beginning at age 40 for women with average risk of breast cancer. ELECTRONICALLY SIGNED: Med Santiago M.D. on 11/08/2024 at 07:26:09 AM PT Interpreting Station ID: [id number]
== END ==
PROVIDERS: PCP Family Medicine; Referring Provider Family Medicine; Visit Provider Family Medicine
DX: Z12.31 Encounter for screening mammogram for malignant neoplasm of breast (principal)
CPT/HCPCS: 77063; 77067

== ENCOUNTER 2024-12-19 08:35 | Day surgery (SDC) | payer OTHER, SELFPAY ==
[2024-12-19 08:54] VITALS: BP 147/91; PULSE 66; RESP 16; TEMP 36; O2SAT 99
[2024-12-19] MEDS: LACTATED RINGERS 1,000 ML 42 ML IV (09:06)
--- NOTE | 2024-12-19 09:12 | P.HP_ITS ---
History of Present Illness History of Present Illness Date Patient Seen: 12/19/24 Time Patient Seen: 09:12 Chief complaint: [facility] [place] Narrative: 49yo F presents for screening colonoscopy. Prior exam 10 years ago. Denies FH for colon cancer. [facility] Medical History (Updated 12/19/24 @ 09:14 by Hiren Fletcher MD) IFG (impaired fasting glucose) History of use of contraceptive intrauterine device (IUD) History of vaginal delivery Abnormal Pap smear of cervix History of stillbirth Surgical History (Updated 11/16/22 @ 20:35 by Karla Leslie) Anesthesia History of cervical cerclage (~2010) History of unilateral oophorectomy Family History (Updated 11/16/22 @ 20:36 by Karla Leslie) Father Suicide Mother Hypertension Diabetes mellitus Hyperlipidemia CVA (cerebral vascular accident) History of heart disease Social History Smoking Status: Never smoker alcohol intake: current substance use type: does not use Meds Home Medications and Allergies Home Medications ?Medication ?Instructions ?Recorded ?Confirmed ?Type No Known Home Medications 12/19/2412/08 History Allergies Allergy/AdvReac Type Severity Reaction Status Date / Time amoxicillin (AMOXICILLIN) Allergy Mild rash Verified 12/19/24 08:52 Exam Vital Signs (past 8 hours): - 12/19/24 08:54 Temperature 96.8 F L Pulse Rate 66 Respiratory Rate 16 Blood Pressure 147/91 H Pulse Oximetry 99 Oxygen Delivery Method Room Air Oxygen Delivery Method Room Air Const General: healthy appearing, comfortable and well developed Orientation: alert and oriented x3 Resp Effort & Inspection: normal respiratory effort and able to speak in complete sentences Auscultation: clear to auscultation bilaterally Cardio Rate: regular rate Rhythm: regular rhythm GI Palpation: soft (nontender) Extrem Other: Without pitting edema Assessment & Plan Assessment and plan (1) Encounter for screening colonoscopy: Status: Acute Plan Screening colonoscopy, possible polypectomy. The risks, benefits and options regarding the procedure were explained to the patient in detail. Risk discussion included but not limited to: bleeding, perforation, missed lesion, unable to reach cecum. The patient was encouraged to ask questions and they were answered to their satisfaction. The patient understands and is agreeable to proceed. Time-Based Coding :: [TOTAL MINUTES] spent with patient and on the chart (including review of chart, obtaining history, exam, reviewing outside data, placing orders, documenting exam and treatment plan, and counseling patient) on [DATE]. 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
--- NOTE | 2024-12-19 09:23 | P.OP.COLON_ITS ---
Operative Date/Time/Diagnoses Date of procedure: 12/19/24 Time of procedure: 09:45 Pre-op diagnosis: Screening colonoscopy Post-op diagnosis: same Procedure & Clinicians Study performed: Colonoscopy Same procedure(s) as scheduled: Yes Indications: 49yo F, due for screening colonoscopy Surgeon: Hiren Fletcher Anesthesia Type: MAC +/- Procedure Notes SCOAP/Timeout: Performed Procedure in detail: Colonoscopy Patient placed in left lateral recumbent position. Time out was performed. Procedural sedation was administered by anesthesia. Examination began with a tho rough inspection of the perianal area. There was no evidence of fissures, fistulae, external hemorrhoids or cutaneous malignancy. The colonoscope was then placed into the rectum and the lumen was insufflated with carbon dioxide. The scope was carefully advanced forward. Ultimately the cecum was intubated and confirmed by identification of the ileocecal valve, the appendiceal orifice and the confluence of the taenia. The scope was then slowly withdrawn examining the colon thoroughly in all directions. In the rectum, retroflexion of the scope was performed for inspection of the distal rectum and anal canal. ?Significant colonoscopy findings: ?1. Quality of the preparation-good, [place] 2-3 with suction/irrigaiton ?2. No polyps, mass, diverticular disease Scope withdrawal time: 6 minutes Specimen(s): none sent Complications: none Impression: Normal screening colonoscopy Plan next screening in 10 years Post-procedure Recommendations: Colonoscopy in 10 years Plan for aftercare: PACU then home Follow up: as needed Disposition: PACU
[2024-12-19 09:42] VITALS: BP 101/58; PULSE 64; RESP 16; TEMP 36.2; O2SAT 98
[2024-12-19 09:50] VITALS: BP 104/57; PULSE 58; RESP 15; O2SAT 98
[2024-12-19 09:55] VITALS: BP 103/62; PULSE 63; RESP 16; TEMP 36.2; O2SAT 99
[2024-12-19 10:00] VITALS: BP 123/65; PULSE 56; RESP 16; TEMP 36.2; O2SAT 100
[2024-12-19 10:04] VITALS: BP 131/78; PULSE 53; RESP 17; O2SAT 99
== END 2024-12-19 10:30 | disposition home or self-care (01) ==
PROVIDERS: PCP Family Medicine; Referring Provider Family Medicine; Visit Provider Surgery
PROC: 0DJD8ZZ Inspection of Lower Intestinal Tract, Via Natural or Artificial Opening Endoscopic (ICD-10-PCS; CPT 45378; principal; 2024-12-19 09:45)
DX: Z12.11 Encounter for screening for malignant neoplasm of colon (principal)
CPT/HCPCS: 45378; J2704

== ENCOUNTER → 2025-01-23 10:02 | Outpatient (CLI) | payer OTHER, SELFPAY ==
[2025-01-23 10:49] LABS: Hematocrit 41.2 % (36-46); Hemoglobin 14.4 g/dL (12.0-16.0); Mean Corpuscular HGB Conc 34.9 % (30-36); Mean Corpuscular Hemoglobin 30.6 PG (26-34); Mean Corpuscular Volume 87.6 fL (80-100); Platelet Count 240 X10^3/uL (150-400)
[2025-01-23 11:03] LABS: Hemoglobin A1C% w Est Avg Glu 5.9 % (4.0-6.0)
[2025-01-23 11:25] LABS: Alanine Aminotransferase 49 IU/L (<35); Albumin 4.8 g/dL (3.5-5.0); Albumin Globulin Ratio 1.4 (1.0-2.8); Alkaline Phosphatase 112 U/L (38-126); Blood Urea Nitrogen 15 mg/dL (7-17); Calcium 10.1 mg/dL (8.4-10.2); Carbon Dioxide 31 mmol/L (22-32); Chloride 99 mmol/L (98-107); Estimated Glomerular Filt Rate > 60 mL/min (>60); Globulin 3.5 g/dL (1.7-4.1); Glucose 103 mg/dL (70-99); HEMOLYSIS < 15 (0-50); Potassium 4.1 mmol/L (3.4-5.1); Sodium 138 mmol/L (137-145); Total Protein 8.3 g/dL (6.3-8.2)
[2025-01-23 11:55] LABS: TSH w/ Reflex to FT4 0.96 uIU/mL (0.47-4.68)
== END ==
PROVIDERS: PCP Family Medicine; Referring Provider Family Medicine; Visit Provider Family Medicine
DX: R73.01 Impaired fasting glucose (principal)
CPT/HCPCS: 36415; 80053; 83036; 84443; 85027